=== PATIENT | female | born 1930 | race Caucasian/White ===

== ENCOUNTER 2017-12-29 14:39 | Emergency (ER) | END 2017-12-29 20:20 | disposition home or self-care (01) ==

== ENCOUNTER 2018-01-20 14:36 | Emergency (ER) | payer OTHER ==
[~2018-01-20] VITALS: Ht 152.4 cm; Wt 64.0 kg
[~2018-01-20 14:36] MED LIST: ACEB200; ACTONEL; ALPR.25 PO; AMLO5; AMLO5 PO; ASPI81EC; ASPI81EC PO; ATOR40TA; ATOR40TA PO; BIOTIN1 MG PO; CALCAVITD PO; CALCAVITDA; CALCAVITDA PO; CARI350 PO; CELE200; CELE200 PO; CENTRUM SILVER1 EAC2 PO; CEREFOLIN; CHOL10002 PO; CITA20; CITA20 PO; CLOP75 PO; CYCL10 PO; DILT30; DILT60; DONE10 PO; ESCI10 PO; EXELON1 EACH TD; FURO40; FURO40 PO; GABA300; HYDACE5; HYDACE5 PO; ISOD40ER; ISOMON60ER; KETO10 PO; LEVCAR2510 PO; LISI10 PO; LISI20 PO; LISI5 PO; METO25ER PO; METO50ER PO; MIRAPEX; MULVITA; POTCHL10ER PO; POTCHL20ER; POTCHL20ER PO; RXCYCL10 PO; RYTARY ER 23.71 EACH PO; VIT1CAPS12; WARF1 PO; WARF7.5 PO; [UNRECOGNIZED DRUG - OTHER] PO; [UNRECOGNIZED DRUG - OTHER] PO; [UNRECOGNIZED DRUG - REMARK]
== END 2018-01-20 14:48 | disposition left against medical advice (07) ==
LOC: ER 14:36
DX: Z53.21 Procedure and treatment not carried out due to patient leaving prior to being seen by health care provider (principal)

== ENCOUNTER 2019-01-25 11:44 | Emergency (ER) | payer OTHER ==
[~2019-01-25] VITALS: Ht 152.4 cm; Wt 68.0 kg
[~2019-01-25 11:44] MED LIST changes: -VIT1CAPS12; +VIT1CAPS12 PO
[2019-01-25 12:20] LABS: BASOPHILS ABSOLUTE AUTO 0.04 K/mm3 (0.00-0.23); BASOPHILS PERCENT AUTO 1 % (0-2); EOSINOPHILS ABSOLUTE AUTO 0.25 K/mm3 (0.00-0.68); EOSINOPHILS PERCENT AUTO 4 % (0-6); Hematocrit 43.2 % (33.0-51.0); Hemoglobin 14.2 g/dL (11.5-16.0); IMMATURE GRAN ABSOLUTE AUTO 0.01 K/mm3 (0.00-0.10); IMMATURE GRAN PERCENT AUTO 0 % (0-1); LYMPHOCYTES ABSOLUTE AUTO 1.15 K/mm3 (0.84-5.20); LYMPHOCYTES PERCENT AUTO 20 % (21-46); MONOCYTES ABSOLUTE AUTO 0.46 K/mm3 (0.16-1.47); MONOCYTES PERCENT AUTO 8 % (4-13); Mean Corpuscular HGB Conc 32.9 g/dL (31.5-36.5); Mean Corpuscular Volume 97 fL (80-100); Mean Platelet Volume 11.2 fL (9.1-12.4); NEUTROPHILS ABSOLUTE AUTO 3.93 K/mm3 (1.96-9.15); NEUTROPHILS PERCENT AUTO 67 % (41-73); Platelet Count 180 K/mm3 (150-400); RDW Coefficient Variation 12.7 % (11.7-14.2); RDW Standard Deviation 45.7 fL (35.1-46.3); Red Blood Cell Count 4.44 M/mm3 (3.80-5.20); White Blood Cell Count 5.84 K/mm3 (4.00-11.30)
[2019-01-25 12:38] LABS: Alanine Aminotransfer (ALT/SGP 10 U/L (12-78); Albumin, Blood 3.8 g/dL (3.4-5.0); Albumin/Globulin Ratio 1.2 (0.8-1.8); Alk Phos 82 U/L (50-136); Anion Gap 4 mmol/L (6-16); Aspartate Aminotrans (AST/SGOT 22 U/L (12-37); Bilirubin, Total 0.7 mg/dL (0.1-1.0); Blood Urea Nitrogen 22 mg/dL (8-24); Bun/Creatinine Ratio 26.4 (12.0-20.0); CO2, Blood 29 mmol/L (21-32); Calcium, Blood 9.2 mg/dL (8.5-10.1); Chloride, Blood 111 mmol/L (98-108); Creatinine, Blood 0.83 mg/dL (0.40-1.00); Globulin, Blood 3.3 g/dL (2.2-4.0); Glomerular Filtration Rate >60 (60-); Glucose, Blood 130 mg/dL (70-99); Potassium, Blood 4.5 mmol/L (3.5-5.5); Sodium, Blood 144 mmol/L (136-145); Total Protein, Blood 7.1 g/dL (6.4-8.2)
== END 2019-01-25 13:58 | disposition home or self-care (01) ==
LOC: ER 11:44
PROVIDERS: Emergency Medicine
DX: R06.02 Shortness of breath (principal); Z88.8 Allergy status to other drugs, medicaments and biological substances; Z88.0 Allergy status to penicillin; Z88.2 Allergy status to sulfonamides; Z88.1 Allergy status to other antibiotic agents; Z79.899 Other long term (current) drug therapy; I10 Essential (primary) hypertension
CPT/HCPCS: 71046; 80053; 83880; 84484; 85025; 93005; 93010; 99284-25

== ENCOUNTER 2019-08-20 14:09 | Inpatient (IN) | payer OTHER ==
[~2019-08-20] VITALS: Ht 162.6 cm; Wt 65.7 kg
[~2019-08-20 14:09] MED LIST changes: -CELE200 PO; +Celebrex200 MG PO
[2019-08-20] MEDS ORDERED: RYTARY ER 48.71 EACH PO (14:49)
[2019-08-20] MEDS ORDERED: GALA4 PO (14:53)
[2019-08-20 15:01] LABS: BASOPHILS ABSOLUTE AUTO 0.04 K/mm3 (0.00-0.23); BASOPHILS PERCENT AUTO 0 % (0-2); EOSINOPHILS ABSOLUTE AUTO 0.12 K/mm3 (0.00-0.68); EOSINOPHILS PERCENT AUTO 1 % (0-6); Hematocrit 43.2 % (33.0-51.0); IMMATURE GRAN ABSOLUTE AUTO 0.05 K/mm3 (0.00-0.10); IMMATURE GRAN PERCENT AUTO 0 % (0-1); LYMPHOCYTES ABSOLUTE AUTO 0.91 K/mm3 (0.84-5.20); LYMPHOCYTES PERCENT AUTO 7 % (21-46); MONOCYTES PERCENT AUTO 6 % (4-13); Mean Corpuscular HGB 31.5 pg (26.0-34.0); Mean Corpuscular HGB Conc 32.4 g/dL (31.5-36.5); Mean Corpuscular Volume 97 fL (80-100); Mean Platelet Volume 11.5 fL (9.1-12.4); NEUTROPHILS ABSOLUTE AUTO 10.58 K/mm3 (1.96-9.15); NEUTROPHILS PERCENT AUTO 85 % (41-73); Platelet Count 186 K/mm3 (150-400); RDW Coefficient Variation 12.6 % (11.7-14.2); RDW Standard Deviation 45.1 fL (35.1-46.3); Red Blood Cell Count 4.45 M/mm3 (3.80-5.20)
[2019-08-20 15:16] LABS: Alanine Aminotransfer (ALT/SGP 12 U/L (12-78); Albumin, Blood 3.5 g/dL (3.4-5.0); Albumin/Globulin Ratio 1.1 (0.8-1.8); Alk Phos 94 U/L (50-136); Anion Gap 6 mmol/L (6-16); Aspartate Aminotrans (AST/SGOT 30 U/L (12-37); Bilirubin, Total 1.1 mg/dL (0.1-1.0); Blood Urea Nitrogen 18 mg/dL (8-24); Bun/Creatinine Ratio 24.8 (12.0-20.0); CO2, Blood 21 mmol/L (21-32); Calcium, Blood 9.4 mg/dL (8.5-10.1); Chloride, Blood 116 mmol/L (98-108); Creatinine, Blood 0.73 mg/dL (0.40-1.00); Globulin, Blood 3.3 g/dL (2.2-4.0); Glomerular Filtration Rate >60 (60-); Glucose, Blood 114 mg/dL (70-99); Potassium, Blood 5.3 mmol/L (3.5-5.5); Sodium, Blood 143 mmol/L (136-145); Total Protein, Blood 6.8 g/dL (6.4-8.2)
[2019-08-20] MEDS ORDERED: Razadyne12 MG PO (16:58)
[2019-08-20] MEDS ORDERED: FURO40 PO (17:01)
[2019-08-20 17:07] LABS: Influenza A Negative (NEGATIVE); Influenza B Negative (NEGATIVE)
[2019-08-20 21:33] LABS: Source, Urine Clean Catch
[2019-08-20 21:35] LABS: Bilirubin, Urine Neg (Neg); Blood, Urine 1+ (Neg); Glucose Qualitative, Urine Neg (Neg); Ketones, Urine 1+ (Neg); Leukocyte Esterase, Urine Neg (Neg); Nitrite, Urine Neg (Neg); Protein, Urine Neg (Neg); Specific Gravity, Urine 1.015 (1.003-1.022); Urobilinogen, Urine NORM (Normal)
[2019-08-20 21:43] LABS: Appearance, Urine Clear (Clear); Color, Urine Yellow (P-Yellow)
[2019-08-20 21:44] LABS: Bacteria Rare /hpf; Squamous Epithelial Cells Rare /hpf (Few); White Blood Cells, Urine 0-2 /hpf (0-5)
[2019-08-20 22:53] LABS: Adenovirus Not Detected (NOT DETECT); Bordetella pertussis Not Detected (NOT DETECT); Chlamydophila pneumoniae Not Detected (NOT DETECT); Coronavirus 229E Not Detected (NOT DETECT); Coronavirus HKU1 Not Detected (NOT DETECT); Coronavirus NL63 Not Detected (NOT DETECT); Coronavirus OC43 Not Detected (NOT DETECT); Human Metapneumovirus Not Detected (NOT DETECT); Human Rhinovirus/Enterovirus Not Detected (NOT DETECT); Influenza A Not Detected (NOT DETECT); Influenza A/2009-H1 Not Detected (NOT DETECT); Influenza A/H1 Not Detected (NOT DETECT); Influenza A/H3 Not Detected (NOT DETECT); Influenza B Not Detected (NOT DETECT); Mycoplasma pneumoniae Not Detected (NOT DETECT); Parainfluenza Virus 1 Not Detected (NOT DETECT); Parainfluenza Virus 2 Not Detected (NOT DETECT); Parainfluenza Virus 3 Not Detected (NOT DETECT); Parainfluenza Virus 4 Not Detected (NOT DETECT); Respiratory Syncytial Virus Not Detected (NOT DETECT)
--- NOTE | 2019-08-21 01:07 | NUR ---
BEGINNING SHIFT SUMMARY ASSUMED CARE OF PT AT 1913. PT IS VERY CONFUSED, SHE IS ORIENTED TO SELF AND EVENT. DAUGTHER IS CAREGIVER AND HISTORIAN. HEART SOUNDS IRREGULAR, FINE CRACKLES AT THE BASES OF LUNGS, PT IS ON 1.5L O2, PT ON RA AT BASELINE, PT DENIES SOB AT THIS TIME, DAUGHTER STATES THAT PT HAS SLEEP APNEA AND SHE WEARS A CPAP AT NIGHT. PT HAS BEEN CONTINENT AND INCONTINET OF BLADDER. PT IS A ONE PERSON ASSIST WITH GAITBELT AND WALKER. PT PULLED OUT IV BY ACCIENT DUE TO ROLLING AROUND IN BED. PT IS CURRENTLY BACK TO SLEEP. CALL LIGHT IN REACH, BED IN LOWEST POSTION, BED ALARM ON, WILL CONTINUE TO MONITOR.
--- NOTE | 2019-08-21 04:16 | NUR ---
END SHIFT SUMMARY NO ACUTE CHANGES. PT IS STILL CONFUSED AND SONTINUES TO SHIFT IN BED FREQUENTLY. IV STILL INTACT AND INFUSING LR @ 50ML/HR. PT HAS REFUSED THE CPAP ALL NIGHT. CALL LIGHT IN REACH, BED IN LOWEST POSTION, BED ALARM ON, WILL CONTINUE TO MONITOR UNTIL DAYSHIFT NURSE ARRIVES.
[2019-08-21 05:38] LABS: BASOPHILS ABSOLUTE AUTO 0.03 K/mm3 (0.00-0.23); BASOPHILS PERCENT AUTO 0 % (0-2); EOSINOPHILS ABSOLUTE AUTO 0.12 K/mm3 (0.00-0.68); EOSINOPHILS PERCENT AUTO 1 % (0-6); Hemoglobin 12.3 g/dL (11.5-16.0); IMMATURE GRAN ABSOLUTE AUTO 0.03 K/mm3 (0.00-0.10); IMMATURE GRAN PERCENT AUTO 0 % (0-1); LYMPHOCYTES ABSOLUTE AUTO 0.88 K/mm3 (0.84-5.20); LYMPHOCYTES PERCENT AUTO 10 % (21-46); MONOCYTES ABSOLUTE AUTO 0.62 K/mm3 (0.16-1.47); MONOCYTES PERCENT AUTO 7 % (4-13); Mean Corpuscular HGB 31.3 pg (26.0-34.0); Mean Corpuscular HGB Conc 32.4 g/dL (31.5-36.5); Mean Corpuscular Volume 97 fL (80-100); Mean Platelet Volume 11.3 fL (9.1-12.4); NEUTROPHILS ABSOLUTE AUTO 7.29 K/mm3 (1.96-9.15); NEUTROPHILS PERCENT AUTO 81 % (41-73); Platelet Count 145 K/mm3 (150-400); RDW Coefficient Variation 12.7 % (11.7-14.2); RDW Standard Deviation 45.7 fL (35.1-46.3); Red Blood Cell Count 3.93 M/mm3 (3.80-5.20); White Blood Cell Count 8.97 K/mm3 (4.00-11.30)
[2019-08-21 06:03] LABS: Anion Gap 9 mmol/L (6-16); Blood Urea Nitrogen 16 mg/dL (8-24); Bun/Creatinine Ratio 20.9 (12.0-20.0); CO2, Blood 21 mmol/L (21-32); Calcium, Blood 8.6 mg/dL (8.5-10.1); Chloride, Blood 114 mmol/L (98-108); Creatinine, Blood 0.77 mg/dL (0.40-1.00); Glomerular Filtration Rate >60 (60-); Glucose, Blood 126 mg/dL (70-99); Magnesium, Blood 2.1 mg/dL (1.6-2.4); Potassium, Blood 4.1 mmol/L (3.5-5.5); Sodium, Blood 144 mmol/L (136-145)
[2019-08-21] MEDS ORDERED: Razadyne12 MG PO (10:45)
[2019-08-21] MEDS ORDERED: Elemental Calc600 MG PO (11:08)
[2019-08-21 12:36] LABS: BASOPHILS ABSOLUTE AUTO 0.04 K/mm3 (0.00-0.23); BASOPHILS PERCENT AUTO 1 % (0-2); EOSINOPHILS ABSOLUTE AUTO 0.11 K/mm3 (0.00-0.68); EOSINOPHILS PERCENT AUTO 1 % (0-6); Hematocrit 40.6 % (33.0-51.0); Hemoglobin 13.3 g/dL (11.5-16.0); IMMATURE GRAN ABSOLUTE AUTO 0.01 K/mm3 (0.00-0.10); IMMATURE GRAN PERCENT AUTO 0 % (0-1); LYMPHOCYTES ABSOLUTE AUTO 0.95 K/mm3 (0.84-5.20); LYMPHOCYTES PERCENT AUTO 11 % (21-46); MONOCYTES ABSOLUTE AUTO 0.59 K/mm3 (0.16-1.47); MONOCYTES PERCENT AUTO 7 % (4-13); Mean Corpuscular HGB 31.4 pg (26.0-34.0); Mean Corpuscular HGB Conc 32.8 g/dL (31.5-36.5); Mean Corpuscular Volume 96 fL (80-100); Mean Platelet Volume 11.3 fL (9.1-12.4); NEUTROPHILS ABSOLUTE AUTO 6.91 K/mm3 (1.96-9.15); NEUTROPHILS PERCENT AUTO 80 % (41-73); Platelet Count 155 K/mm3 (150-400); RDW Coefficient Variation 12.9 % (11.7-14.2); RDW Standard Deviation 45.9 fL (35.1-46.3); Red Blood Cell Count 4.24 M/mm3 (3.80-5.20); White Blood Cell Count 8.61 K/mm3 (4.00-11.30)
[2019-08-21 12:47] LABS: Anion Gap 7 mmol/L (6-16); Blood Urea Nitrogen 17 mg/dL (8-24); Bun/Creatinine Ratio 20.8 (12.0-20.0); CO2, Blood 22 mmol/L (21-32); Calcium, Blood 8.7 mg/dL (8.5-10.1); Chloride, Blood 115 mmol/L (98-108); Creatinine, Blood 0.82 mg/dL (0.40-1.00); Glomerular Filtration Rate >60 (60-); Glucose, Blood 117 mg/dL (70-99); Potassium, Blood 4.1 mmol/L (3.5-5.5); Sodium, Blood 144 mmol/L (136-145)
--- NOTE | 2019-08-21 16:18 | NUR ---
SUMMARY PT HAS HX PARKINSONS & DEMENTIA, ORIENTED TO SELF & FAMILY, PLEASANT HOWEVER CONFUSED. UE TREMORS. SHE IS ABLE TO STAND/PIVOT TO CHAIR/BSC W 1-2 ASSIST. SHE WAS UP FOR BF TODAY. WHILE HER DAUGHTER WAS VISITING AFTER BF SHE BECAME SHORT OF BREATH, BIOX MID 90'S ON RA HOWEVERPLACED ON 2L FOR COMFORT. ISTRATE NOTIFIED, IN TO SEE PT & DAUGHTER, REVIEW CXR. STATE VOL OVERLOAD R/T CHF, BNP @ 1352, ORDER EXTRA IV LASIX 10MG IN ADDITION TO SCHEDULED 40MG TID. ORDER ATIVAN 0.5MG FOR ANXIETY. SHE HAS PUT OUT LARGE AMTS URINE HOWEVER UNMEASURED D/T INCONTINENCE. BREATHING HAS IMPROVED, O2 CONTINUES @ 2L, BIOX 94% SHE BEEN CALM, SLEEPING MOST OF AFTERNOON. ORDER D-DIMER TO R/O PE, WNL. WBC 12.4, IV ANTIBX CONTINUE. VSS.
--- NOTE | 2019-08-21 17:06 | NUR ---
ECHOCARDIOGRAM COMPLETED
--- NOTE | 2019-08-21 21:24 | NUR ---
BEGINNING SHIFT SUMMARY ASSUMED CARE OF PT AT 1900. PT WAS LYING IN BED. PT IS ALERT AND ORIENTED TO SELF, PT WILL GET OUT OF BED BY HERSELF, BED ALARM ON. HEART SOUNDS IRREGULAR. L LUNG SOUNDS HAD FINE CRACKLES AT THE BASES, PT IS REFUSING THE CPAP, PT IS CURRENTLY ON RA WITH BIOX ON FINGER, PT HAD SOME SOB WHEN SWOLLOWING MEDICATIONS BUT HAD NOT HAD ANY SINCE. PT IS CURRENTLY SLEEPING, CALL LIGHT IN REACH, BED IN LOWEST POSTION, WILL CONTINUE TO MONITOR.
--- NOTE | 2019-08-22 04:41 | NUR ---
END SHIFT SUMMARY NO ACUTE CHANGES NOTED T/O THE NIGHT. PT REFUSED THE CPAP, SATURATIONS STAYED ABOVE 90%, PT WAS CONTINENT DURING THE NIGHT AND DID NOT ATTEMPT TO GET OUT OF BED. CALL LIGHT IN REACH, BED IN LOWEST POSTION, WILL CONTINUE TO MONITOR UNTIL DAYSHIFT NURSE ARRIVES.
[2019-08-22 05:33] LABS: BASOPHILS ABSOLUTE AUTO 0.03 K/mm3 (0.00-0.23); BASOPHILS PERCENT AUTO 1 % (0-2); EOSINOPHILS ABSOLUTE AUTO 0.21 K/mm3 (0.00-0.68); EOSINOPHILS PERCENT AUTO 4 % (0-6); Hematocrit 37.8 % (33.0-51.0); Hemoglobin 12.5 g/dL (11.5-16.0); IMMATURE GRAN ABSOLUTE AUTO 0.02 K/mm3 (0.00-0.10); IMMATURE GRAN PERCENT AUTO 0 % (0-1); LYMPHOCYTES ABSOLUTE AUTO 1.17 K/mm3 (0.84-5.20); LYMPHOCYTES PERCENT AUTO 20 % (21-46); MONOCYTES PERCENT AUTO 8 % (4-13); Mean Corpuscular HGB 31.5 pg (26.0-34.0); Mean Corpuscular HGB Conc 33.1 g/dL (31.5-36.5); Mean Corpuscular Volume 95 fL (80-100); Mean Platelet Volume 11.5 fL (9.1-12.4); NEUTROPHILS PERCENT AUTO 68 % (41-73); Platelet Count 147 K/mm3 (150-400); RDW Coefficient Variation 12.9 % (11.7-14.2); RDW Standard Deviation 45.2 fL (35.1-46.3); Red Blood Cell Count 3.97 M/mm3 (3.80-5.20); White Blood Cell Count 5.93 K/mm3 (4.00-11.30)
[2019-08-22 05:56] LABS: Anion Gap 6 mmol/L (6-16); Blood Urea Nitrogen 19 mg/dL (8-24); Bun/Creatinine Ratio 20.8 (12.0-20.0); CO2, Blood 26 mmol/L (21-32); Calcium, Blood 8.6 mg/dL (8.5-10.1); Chloride, Blood 114 mmol/L (98-108); Creatinine, Blood 0.91 mg/dL (0.40-1.00); Glomerular Filtration Rate >60 (60-); Glucose, Blood 101 mg/dL (70-99); Potassium, Blood 3.8 mmol/L (3.5-5.5); Sodium, Blood 146 mmol/L (136-145)
[2019-08-22] MEDS ORDERED: Ventolin/Prove6.7 GM INH (14:34)
[2019-08-22] MEDS ORDERED: BISA10S PR (14:35)
[2019-08-22] MEDS ORDERED: AZIT500 PO (14:35)
[2019-08-22] MEDS ORDERED: FAMO20 PO (14:36)
[2019-08-22] MEDS ORDERED: CEFP200 PO (14:36)
[2019-08-22] MEDS ORDERED: Florastor250 MG PO (14:37)
[2019-08-22] MEDS ORDERED: ONDA4 PO (14:37)
[2019-08-22] MEDS ORDERED: SPIR25 PO (14:38)
--- NOTE | 2019-08-22 15:24 | NUR ---
PT DISCHARGED PT DISCHARGED AT 1517. PT IN STABLE CONDITION. PT & DAUGHTER EDUCATED ON DC INSTRUCTIONS AND FOLLOW UP APPOINTMENTS. NEW MEDS SENT TO [facility]. IV REMOVED & INTACT. PT WHEELED OUT BY THIS RN. DRIVEN HOME BY DAUGHTER.
[2019-09-07] MEDS ORDERED: CELECOXIB200 M1 PO (12:52)
[2019-09-07] MEDS ORDERED: FUROSEMIDE40 MG PO (12:53)
== END 2019-08-22 15:15 | disposition home health service (06) | DRG 871 ==
LOC: ER 14:09 → MEDS 16:41
PROVIDERS: Emergency Medicine; Physician Assistant; ADMIT Family Medicine
DX: A41.9 Sepsis, unspecified organism (principal); J18.9 Pneumonia, unspecified organism; G20 Parkinson's disease; F02.80 Dementia in other diseases classified elsewhere, unspecified severity, without behavioral disturbance, psychotic disturbance, mood disturbance, and anxiety; Z95.2 Presence of prosthetic heart valve; H35.3190 Nonexudative age-related macular degeneration, unspecified eye, stage unspecified; Z95.1 Presence of aortocoronary bypass graft; I35.0 Nonrheumatic aortic (valve) stenosis; E78.5 Hyperlipidemia, unspecified; I50.9 Heart failure, unspecified; I11.0 Hypertensive heart disease with heart failure
CPT/HCPCS: 0099U; 36415; 71045; 71046; 80048; 80053; 81001; 83605; 83735; 83880; 84145; 85025; 85379; 87040; 87804; 93005; 93010; 93306; 94762; 96365; 96366; 96367; 99285-25; J0456; J0696; J1650; J1940; J2060; J7030; J7050; J7120

== ENCOUNTER 2019-10-02 19:04 | Inpatient (IN) | payer OTHER ==
[~2019-10-02] VITALS: Ht 144.8 cm; Wt 61.2 kg
[~2019-10-02 19:04] MED LIST changes: +AZIT500 PO; +Aspir 8181 MG PO; +BISA10S PR; +CEFP200 PO; +CELECOXIB200 M1 PO; -CHOL10002 PO; +Elemental Calc600 MG PO; +FAMO20 PO; +FUROSEMIDE40 MG PO; +Florastor250 MG PO; +GALA4 PO; +ONDA4 PO; +RYTARY ER 48.71 EACH PO; +Razadyne12 MG PO; +SPIR25 PO; +VITAMIN D31000 UNI1 PO; +Ventolin/Prove6.7 GM INH; +[UNRECOGNIZED DRUG - OTHER] PO
[2019-10-02] MEDS ORDERED: Klor-Con 1010 MEQ PO (19:14)
[2019-10-02] MEDS ORDERED: FURO40 PO (19:14)
[2019-10-02 19:43] LABS: BASOPHILS ABSOLUTE AUTO 0.05 K/mm3 (0.00-0.23); BASOPHILS PERCENT AUTO 1 % (0-2); EOSINOPHILS ABSOLUTE AUTO 0.13 K/mm3 (0.00-0.68); EOSINOPHILS PERCENT AUTO 2 % (0-6); Hematocrit 41.1 % (33.0-51.0); Hemoglobin 13.5 g/dL (11.5-16.0); IMMATURE GRAN ABSOLUTE AUTO 0.01 K/mm3 (0.00-0.10); IMMATURE GRAN PERCENT AUTO 0 % (0-1); LYMPHOCYTES PERCENT AUTO 15 % (21-46); MONOCYTES ABSOLUTE AUTO 0.45 K/mm3 (0.16-1.47); MONOCYTES PERCENT AUTO 7 % (4-13); Mean Corpuscular HGB 31.3 pg (26.0-34.0); Mean Corpuscular HGB Conc 32.8 g/dL (31.5-36.5); Mean Corpuscular Volume 95 fL (80-100); Mean Platelet Volume 10.9 fL (9.1-12.4); NEUTROPHILS ABSOLUTE AUTO 4.99 K/mm3 (1.96-9.15); NEUTROPHILS PERCENT AUTO 75 % (41-73); Platelet Count 250 K/mm3 (150-400); RDW Coefficient Variation 13.4 % (11.7-14.2); RDW Standard Deviation 47.3 fL (35.1-46.3); Red Blood Cell Count 4.31 M/mm3 (3.80-5.20); White Blood Cell Count 6.63 K/mm3 (4.00-11.30)
[2019-10-02 20:04] LABS: Alanine Aminotransfer (ALT/SGP 12 U/L (12-78); Albumin, Blood 3.4 g/dL (3.4-5.0); Alk Phos 82 U/L (50-136); Anion Gap 6 mmol/L (6-16); Aspartate Aminotrans (AST/SGOT 22 U/L (12-37); Bilirubin, Total 0.8 mg/dL (0.1-1.0); Blood Urea Nitrogen 20 mg/dL (8-24); Bun/Creatinine Ratio 28.5 (12.0-20.0); CO2, Blood 25 mmol/L (21-32); Calcium, Blood 9.8 mg/dL (8.5-10.1); Chloride, Blood 112 mmol/L (98-108); Globulin, Blood 3.3 g/dL (2.2-4.0); Glomerular Filtration Rate >60 (60-); Glucose, Blood 154 mg/dL (70-99); Sodium, Blood 143 mmol/L (136-145); Total Protein, Blood 6.7 g/dL (6.4-8.2)
[2019-10-02 20:05] LABS: Source, Urine Catheter
[2019-10-02 20:16] LABS: Appearance, Urine Clear (Clear); Bilirubin, Urine Neg (Neg); Blood, Urine Neg (Neg); Color, Urine Yellow (P-Yellow); Glucose Qualitative, Urine Neg (Neg); Ketones, Urine 1+ (Neg); Leukocyte Esterase, Urine 2+ (Neg); Nitrite, Urine Neg (Neg); Protein, Urine Neg (Neg); Urobilinogen, Urine NORM (Normal)
[2019-10-02 20:31] LABS: Bacteria Mod /hpf; Red Blood Cells, Urine 0-2 /hpf (0-2); Squamous Epithelial Cells Few /hpf (Few)
[2019-10-02] MEDS ORDERED: LISI20 PO (21:08)
[2019-10-02] MEDS ORDERED: FURO20 PO (21:08)
[2019-10-02] MEDS ORDERED: CELEBREX200 MG PO (21:09)
[2019-10-02] MEDS ORDERED: Aspirin EC81 MG PO (21:14)
--- NOTE | 2019-10-03 00:31 | NUR ---
Pt arrival to PCU Arrived at 2305 via gurney with ED RN at bedside. Pt slide transfer to PCU bed. VSS. Alert, oriented to self, place, time; not oriented to situation. Pt not answering questions appropriately, often laughs throughout conversation. Pt unable to recall history. Pt follows simple directions and commands, difficulty noted in complex directions. See admission assessment for detailed systems assessment. Pt able to transfer to BSC with SBA without difficulty. FWW utilized in transfer. pt voided 650 mls urine. Attends placed on pt in case of incont void throughout night. Pt able to swallow pills whole, one at a time, in apple sauce. Will continue to monitor.
[2019-10-03 03:04] LABS: BASOPHILS ABSOLUTE AUTO 0.03 K/mm3 (0.00-0.23); BASOPHILS PERCENT AUTO 1 % (0-2); EOSINOPHILS ABSOLUTE AUTO 0.16 K/mm3 (0.00-0.68); EOSINOPHILS PERCENT AUTO 3 % (0-6); Hematocrit 39.4 % (33.0-51.0); Hemoglobin 12.8 g/dL (11.5-16.0); IMMATURE GRAN ABSOLUTE AUTO 0.01 K/mm3 (0.00-0.10); IMMATURE GRAN PERCENT AUTO 0 % (0-1); LYMPHOCYTES ABSOLUTE AUTO 0.95 K/mm3 (0.84-5.20); LYMPHOCYTES PERCENT AUTO 17 % (21-46); MONOCYTES ABSOLUTE AUTO 0.47 K/mm3 (0.16-1.47); MONOCYTES PERCENT AUTO 9 % (4-13); Mean Corpuscular HGB 31.2 pg (26.0-34.0); Mean Corpuscular HGB Conc 32.5 g/dL (31.5-36.5); Mean Corpuscular Volume 96 fL (80-100); Mean Platelet Volume 10.6 fL (9.1-12.4); NEUTROPHILS ABSOLUTE AUTO 3.86 K/mm3 (1.96-9.15); NEUTROPHILS PERCENT AUTO 71 % (41-73); Platelet Count 219 K/mm3 (150-400); RDW Coefficient Variation 13.5 % (11.7-14.2); RDW Standard Deviation 48.2 fL (35.1-46.3); White Blood Cell Count 5.48 K/mm3 (4.00-11.30)
[2019-10-03 03:21] LABS: Anion Gap 6 mmol/L (6-16); Blood Urea Nitrogen 19 mg/dL (8-24); Bun/Creatinine Ratio 22.9 (12.0-20.0); CO2, Blood 27 mmol/L (21-32); Chloride, Blood 114 mmol/L (98-108); Creatinine, Blood 0.83 mg/dL (0.40-1.00); Glomerular Filtration Rate >60 (60-); Glucose, Blood 127 mg/dL (70-99); Potassium, Blood 3.6 mmol/L (3.5-5.5); Sodium, Blood 147 mmol/L (136-145)
--- NOTE | 2019-10-03 05:16 | NUR ---
Shift Summary Pt admitted to PCU this shift, remains alert and oriented to person and date of . Pt forgetting frequently where she is and why she is in the hospital. VSS. Voiding at the [facility] with 1-2 person assist. approx 900 mls voided this shift. Tele shows sinus BBB and PVCs, one 13 beat run of VTACH. Pt asx, sleeping. No acute changes from initial admission assessment. Will continue to monitor.
--- NOTE | 2019-10-03 07:28 | NUR ---
ASSUMED PATIENT CARE. PATIENT SLEEPING COMFORTABLY IN BED, NO SIGNS OF ACUTE DISTRESS. WCTM.
--- NOTE | 2019-10-03 13:04 | NUR ---
CALLED PATIENT'S DAUGHTER AND ASKED HER TO BRING IN HOME MEDS, INCLUDING CARBIDOPA/LEVODOPA. DAUGHTER WILL PLAN TO BRING THOSE TONIGHT AFTER WORK.
--- NOTE | 2019-10-03 15:38 | NUR ---
[facility] CARE VISIT: Introduced myself to Katlyn lucero and to pt. Katlyn remembers meeting with Palliative Care on her mom's last admission in September and remarks that her mom has visited the hospital monthly recently. Pt and family well known to me from the community. Krissy does not recognize me or remember attending cardiac rehab after her cardiac stenting and bypass. She brightens when she hears me mention her other daughter's and sons' names recognizing the names. Pt appears slighly anxious and restless. She is able to get to a sitting position at the side of the bed without assist. She required help getting her blankets and gown straightened to remove wrinkles that were bothering her and then she was able to lie back down. Her daughter seems very anxious with pt's movements and bed mobility. At no time did Krissy attempt to get OOB while I was standing there. 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 Katlyn states that her brother, Shiv, is pt's medical and legal POA. She states he is in [place] and she cannot remember or does not have his phone # with her. She states family planned to discuss code status with pt's PCP, Dr Castelan but hadn't yet. Katlyn feels they would not want CPR or intubation initiated but states she cannot give any instructions. I gave Katlyn my card and asked that she have her Brother, Shiv, give us a call to get directions for goals of care and code status. Another son, Waqar, and DEE live locally but are also not the medical POA per Katlyn. Krissy lives at home wtih her jazmine, Katlyn. Katlyn is exhibiting and expressing CG distress/fatigue and may benefit from support at home. 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 Pt and her daughter may benefit from s/s management assist and cg support at home on d/c. Will await sonShiv's call to discuss family wishes and goals of care and review advanced care planning options with Shiv, who siblings identify as pt's medical POA.
--- NOTE | 2019-10-03 17:00 | NUR ---
REPORT GIVEN TO JOSE ALEJANDRO CHERRY IN MED.
--- NOTE | 2019-10-03 19:50 | NUR ---
SHIFT SUMMARY: PATIENT XFR FROM PCU-01 THIS SHIFT. PT A&O; HX DEMENTIA/PARKINSONS; CALM AND COOPERATIVE WITH CARE. ADMIT FOR CHF EXAC; LUNGS COARSE; O2 @ 4L; EF 15%. FORGETFUL; BED ALARM ON FOR SAFETY. REPORT GIVEN TO ONCOMING RN.
[2019-10-04 05:23] LABS: Magnesium, Blood 2.3 mg/dL (1.6-2.4)
[2019-10-04 05:25] LABS: Anion Gap 8 mmol/L (6-16); Blood Urea Nitrogen 21 mg/dL (8-24); Bun/Creatinine Ratio 23.6 (12.0-20.0); CO2, Blood 27 mmol/L (21-32); Calcium, Blood 8.8 mg/dL (8.5-10.1); Chloride, Blood 113 mmol/L (98-108); Creatinine, Blood 0.89 mg/dL (0.40-1.00); Glomerular Filtration Rate >60 (60-); Glucose, Blood 123 mg/dL (70-99); Potassium, Blood 3.5 mmol/L (3.5-5.5); Sodium, Blood 148 mmol/L (136-145)
--- NOTE | 2019-10-04 06:09 | NUR ---
SHIFT SUMMARY PATIENT ALERT BUT SLIGHTLY CONFUSED AND FORGETFUL. VERY PLEASANT AND COOPORATIVE. SHE IS ABLE TO STAND AND TURN TO THE BED SIDE COMMODE WITH MINIMAL ASSISTANCE. PATIENT ON 4 LITERS O2 VIA NASAL CANULA. IV PATENT AND FLUSHED. BED IN LOWEST POSITION WITH WHEELS LOCKED AND ALARM ON. CALL LIGHT WITHIN REACH AND PATIENT REMINDED OF HOW TO USE IT. REPORT GIVEN TO ONCOMING RN.
--- NOTE | 2019-10-04 19:59 | NUR ---
SHIFT SUMMARY: PT HX DEMENTIA; A&O X1-2; CALM; COOPERATIVE WITH CARE LATER IN SHIFT. NO C/O PAIN THIS SHIFT. PT UP c 1-ASSIST TO BSC. WEAK, FORGETFUL; BED ALARM ON FOR SAFETY. HOSPICE REFERRAL THIS SHIFT; PT NOW DNR STATUS. REPORT GIVEN TO ONCOMING RN.
[2019-10-05 06:19] LABS: Bun/Creatinine Ratio 25.3 (12.0-20.0); Calcium, Blood 9.4 mg/dL (8.5-10.1); Creatinine, Blood 0.95 mg/dL (0.40-1.00); Potassium, Blood 3.8 mmol/L (3.5-5.5)
[2019-10-05 06:23] LABS: BASOPHILS ABSOLUTE AUTO 0.05 K/mm3 (0.00-0.23); BASOPHILS PERCENT AUTO 1 % (0-2); EOSINOPHILS ABSOLUTE AUTO 0.06 K/mm3 (0.00-0.68); EOSINOPHILS PERCENT AUTO 1 % (0-6); Hematocrit 42.6 % (33.0-51.0); IMMATURE GRAN ABSOLUTE AUTO 0.03 K/mm3 (0.00-0.10); IMMATURE GRAN PERCENT AUTO 0 % (0-1); LYMPHOCYTES ABSOLUTE AUTO 1.13 K/mm3 (0.84-5.20); LYMPHOCYTES PERCENT AUTO 14 % (21-46); MONOCYTES ABSOLUTE AUTO 0.57 K/mm3 (0.16-1.47); MONOCYTES PERCENT AUTO 7 % (4-13); Mean Corpuscular HGB Conc 32.9 g/dL (31.5-36.5); Mean Corpuscular Volume 94 fL (80-100); Mean Platelet Volume 11.2 fL (9.1-12.4); NEUTROPHILS ABSOLUTE AUTO 6.04 K/mm3 (1.96-9.15); NEUTROPHILS PERCENT AUTO 77 % (41-73); Platelet Count 247 K/mm3 (150-400); RDW Coefficient Variation 13.5 % (11.7-14.2); RDW Standard Deviation 46.7 fL (35.1-46.3); Red Blood Cell Count 4.52 M/mm3 (3.80-5.20); White Blood Cell Count 7.88 K/mm3 (4.00-11.30)
--- NOTE | 2019-10-05 07:34 | NUR ---
10/05/19 0700 PT C/O SOB AND VITALS TAKEN. 02 SAT = 96% ON ROOM AIR. REST OF VITALS WERE GOOD. PT VERY CONFUSED LAST NIGHT AND RN HAD TO GET AN ORDER FOR VEST RESTRINT TO PREVENT A FALL. PT WAS NOT COOPERATIVE WITH DIRECTIONS AND WOULD ATTEMPT TO GET OUT OF BED OFTEN. PT VOIDED TWICE THIS SHIFT. DENIES ANY DISCOMFORT.
--- NOTE | 2019-10-05 18:39 | NUR ---
SPOKE TO DR ROBERTO FERRER RN STATES PT TO LEAVE THURSDAY ON HOSPICE. HER REQUEST FOR COMFORT CARE. HE BELIEVES PT SON MAKING FINAL DECISIONS. HE WILL SEE TOMORROW AND TALK TO FAMILY. HE OKAYED NO IV. OKAY HALDON FROM IV TO PO. AND ADD ATIVAN. PO. SPOKE TO DAUGHTER CHI IN ROOM. SHE IN TOUCH WITH REST OF FAMILY. STATES UNDERSTANDS AND THINKS UNDERSTANDS POSS COMFORT CARE. REQUESTED SHE VISIT WITH OTHER FAMILY AND DISCUSS AND DR MEJIA TO SEE TOMORROW.
--- NOTE | 2019-10-05 19:40 | NUR ---
PT PLEASANT, MOSTLY, WITH SOME AGITATION. CONFUSED. NOT REDIRECTABLE. TRYING TO GET OUT OF BED MOST OF DAY. VEST RESTRAINT ON T/O DAY. DAUGHTER IN TODAY. BROUGHT DOG IN TO SEE PT. THIS HELPED. PT PULLED IV. DISCUSSED WITH DR MEJIA. OKAYED NO IV. MOVE HALDOL TO PO AND ORDERS FOR ATIVAN PO. PT DISCHARGING ON HOSPICE THURSDAY. DAUGHTER TO TALK AMONG FAMILY AND DISCUSSING COMFORT CARE. DR MEJIA TO SEE TOMORROW AND DISCUSS FURTHER. BED IN LOW POSITION, CALL LITE IN REACH, BED ALARM ON FOR SAFETY, VEST ALSO FOR SAFETY
--- NOTE | 2019-10-06 05:42 | NUR ---
SUMMARY PT REMAINS CONFUSED AND TRIES TO GET OUT OF BED. PT CONTINUES TO WEAR A HUSSAIN VEST FOR SAFETY. NO OTHER ISSUES NOTED. CALL LIGHT IN REACH AND BED ALARM ON. WCTM.
--- NOTE | 2019-10-06 10:45 | NUR ---
PAL CARE VISIT: CASE CONFERENCED WITH PT'S RN AND DR AFTER VISIT. Pt is lying on her side, resting. RR is 36-40/min at rest. She has been by report more anxious and agitated over the past 24 hours. I did not disturb her as RN had just been in the room and she is resting with eyes closed currently. She did not open them when I came into the room. No family/visitors with her at this time. Plan to contact family re: comfort care to start today if they are agreeable to better manage her s/s of air hunger and anxiety/agitation. Discussed dc planning with rehabilitation liaison and CM this am also.
--- NOTE | 2019-10-06 15:00 | NUR ---
PAL CARE/COMFORT CARE VISIT T/C FROM RN STATING PT'S ANXIETY AND AIR HUNGER WORSENING DAY HAS PROGRESSED. CALL OUT TO [facility]PO[facility] AND UNABLE TO REACH HIM. T/C TO CYNTHIA PHILIP, WHO RETURNED MY CALL. CYNTHIA ASKS THAT WE PROCEED WITH INITIATING COMFORT CARE SO MOM'S S/S MAY BE BETTER TREATED. PLAN REMAINS FOR PT TO BE DISCHARGED HOME WITH HOSPICE AND FAMILY/HIRED CG IN AM WITH REASSESSMENT OF PROGRESSION AND S/S IN AM ALSO. T/C TO REPORT ALL OF ABOVE TO DR AND PT'S RN. VO FOR COMFORT CARE ORDERS OBTAINED AND ENTERED. RN ALSO REPORTS THAT PT IS STARTING TO HALLUCINATE AND BELIEVES SOMEONE IS "COMING TO KILL HER". DURING MY SECOND VISIT FOR SUPPORT & ASSESSMENT, CHI PHILIP & NEIGHBOR/FRIEND ARRIVED. THEY WERE UPDATED ON CURRENT STATUS AND CHANGE IN ORDERS. BOTH VERBALIZE UNDERSTANDING AND AGREEMENT WITH PRIMARY GOAL OF CARE BEING PT'S COMFORT. CECIL RECOGNIZED HER DAUGHTER AND RECOGNIZED FRIEND "NEIGHBOR" AND SEEMED CALMED BY THEIR PRESENCE AND VOICES. CHI WAS VERY TENDER AND SUPPORTIVE WITH HER MOM, WHICH WAS VERY SOOTHING TO CECIL. I ENCOURAGED FAMILY AND FRIENDS TO BE PRESENT MUCH THEY ARE ABLE AND TO REST AND PROVIDE SELF CARE FOR THEMSELVES NEEDED WELL. WE DISCUSSED PLAN OF CARE, MEDICATIONS FOR S/S AND I ANSWERED QUESTIONS THEY HAD. MEDICAL EQUIPMENT IN PROCESS OF BEING DELIVERED PER RICKS/HOSPICE LATE THIS AFTERNOON. CYNTHIA IS STAYING IN CLOSE CONTACT WITH CHI AND PIPER. ANOTHER SON IS ARRIVING TOMORROW FROM [facility] AND HOPES TO BE IN [place] WITH CYNTHIA SAT. THIS WILL BE HELPFUL TO CHI AT HOME. PIPER IS ALSO EXPECTED BACK IN [place] BY THE WEEKEND. CM AND AIR REDUCTION EQUIPMENT OPERATOR UPDATED ON ALL OF ABOVE.
--- NOTE | 2019-10-06 16:09 | NUR ---
CALLED AND SPOKE WITH PALLIATIVE CARE RN JAQUELINE AND NOTIFIED HER THAT PT WAS VERY ANXIOUS ATTEMPTING TO GET OUT OF BED AND INCREASED RESPIRATIONS. PT ALSO NOTED TO HAVE SOME HALLUCINATIONS AND VERY CONCERNED THAT SOMEONE WAS GOING TO COME KILL HER. PRN ATIVAN GIVEN.PT WITH VERY LITTLE ORAL INTAKE THIS SHIFT AND NO URINE OUTPUT. JAQUELINE CALLED AND SPOKE WITH FAMILY AND PT WAS CHANGED TO COMFORT CARE AT THIS TIME. PT CURRENTLY RESTING WITH SON AT BEDSIDE.
--- NOTE | 2019-10-06 16:48 | NUR ---
SHIFT SUMMARY- PT CHANGED TO COMFORT CARE TODAY. PT A/OX1 ONLY. PT ANXIOUS AT TIMES AND ATTEMPTING TO GET OUT OF BED AND PULLING ON RESTRAINTS. PT SOB AND NOTED TO HAVE INCREASED RESPIRATIONS AND AIR HUNGER. PRN ATIVAN GIVEN THIS AFTERNOON THAT DID HELP. LS CLEAR/ DIMINISHED IN THE BASES, ON RA. PT DIFFICULT TO TAKE MEDICATIONS THIS AM BUT DID FINALLY TAKE, HOME MEDS HAVE BEEN STOPPED AT THIS TIME. MO WITH VERY LITTLE ORAL INTAKE, NO URINE OUTPUT THIS SHIFT. FAMILY HAS BEEN IN ROOM AT TIMES T/O THE DAY AND EDUCATED ON COMFORT CARE. HUSSAIN LEES'Jayy AT 1600. ACCORING TO PALLIATIVE CARE NURSE JAQUELINE JUSTICE IS NOW CONCERNED ABOUT TAKING PT HOME TOMORROW ON HOSPICE, PER JAQUELINE THEY WILL REEVALUATE TOMORROW.
--- NOTE | 2019-10-07 00:03 | NUR ---
Patient refused all pill form meds (twice). Offered with applesauce. Did not push as patient quite somnolent. She was able to take a 5mg dose of roxynol around 2345 sublinqually. Patient gets quite tachypnec when turned, or disturbed. If morphine doesn't appear to make patient comfortable, will try making ativan into paste and giving it sublingually.
--- NOTE | 2019-10-07 07:23 | NUR ---
ASSUMED CARE OF PT- BEDSIDE REPORT COMPLETED WITH NIGHT RN VICENTA. PER REPORT PT APPEARS TO BE RALLYING, PT MORE INTERACTIVE THAN PERVIOUS. PT HAS 5 CHILDREN THREE HAVE BEEN IN 2 ARE COMING FROM OUT OF TOWN. PER REPORT THE PT HAS A SON (KAIT) WHO, PER FAMILY, IS IN NO WAY A DECISION MAKER. PT IS COMFORT CARE AND LAST 5MG ROXINOL DOSE WAS GIVEN AT 0638. PT APPEARS COMFORTABLE IN THE BED AT THIS TIME. PER REPORT PT MOVES HERSELF AROUND IN THE BED, IS REFUSING ALL PO MEDICATIONS AND BITES THE SYRINGE WHEN ROXANOL IS BEING GIVEN (HOWEVER SHE OPENS HER MOUTH AGAIN READILY) POSSIBLY A BITE REFLEX. PT SEEMS TO BE DROWSY BUT ALERT TO HER SURROUNDINGS THIS MORNING. ALSO PRIOR TO SHIFT CHANGE SHE VERBALY TOLD STAFF SHE WAS COLD, SHE NODDED THAT SHE WAS NO LONGER COLD AT SHIFT CHANGE, DURING BEDSIDE REPORT.
--- NOTE | 2019-10-07 08:15 | NUR ---
CALLED PALLIATIVE CARE RN TO COME SPEAK TO THE FAMILY. PT IS HAVING NOTABLE PAUSES IN RESPIRATIONS FOLLOWED BY RAPID BREATHING. PT APPEARS COMFORTABLE AT THIS TIME, DAUGHTER AT THE BEDSIDE, EACH TIME THE PT HAS A PAUSE IN RESPIRATIONS SHE SHAKES THE PT AWAKE. PT REACHED OUT WITH HER LEFT HAND GRABBED HER DAUGHTERS HAND AND SAID "LEAVE ME ALONE." CALLED PALLIATIVE CARE RN FOR SOME ADDITIONAL EDUCATION FOR THE FAMILY ON WHAT TO EXPECT THE PT PROGRESSES. PLAN IS FOR THE PT TO DISCHARGE HOME ON HOSPICE TODAY AT 1000 VIA GURNEY TRANSPORT.
--- NOTE | 2019-10-07 08:45 | NUR ---
Requested by nursing to come speak with pt's daughter who is at the bedside. Nursing reports pt is having occasional periods of apnea and would like PC to come visit with her dtr. EOL education given. Explained the normal signs that come with EOL. Provided [employer] comfort care booklet to dtr and answered questions. Plan is for pt to go home with Hospice at 1000 this morning with a same day admit to [facility]. OLIVERIO Alonzo, stopped in while this insurance underwriter was visiting with dtr to confirm plans for discharge today. Pt has periods of alertness and periods of sleepiness. No mottling noted. Skin is warm, but cool to touch. Krissy did open her eyes and say "good morning" to this insurance underwriter. Spoke with nursing who will plan to medicate pt prior to discharge. Pt's dtr states all equipment is in place at home and Krissy's caregiver will be there at home when she arrives. Krissy appears to be comfortable at this time.
[2019-10-07] MEDS ORDERED: LORA1 (09:46)
[2019-10-07] MEDS ORDERED: MORP20L SL (09:49)
[2019-10-07] MEDS ORDERED: Phenergan25 MG PR (09:51)
[2019-10-07] MEDS ORDERED: Transderm-Scop1 EACH (09:57)
--- NOTE | 2019-10-07 10:00 | NUR ---
DISCHARGE NOTE- PT WAS ASSISTED INTO HER CLOTHES BY 2 STAFF MEMBERS. AFTER ALL OF THIS ACTIVITY PT WAS BREATHING RAPIDLY AND APPEARED ANXIOUS SAYING "HURRY, HURRY, QUICK" PT WAS UNABLE TO ANSWER ANY QUESTIONS WHEN STAFF TRIED TO DETERMINE WHAT WAS WRONG. PLANNED TO GIVE ROXANOL WITH ATIVAN FOR ANXIETY WITH AIR HUNGER. RETURNED WITH 10MG ROXINOL AND 1MG ATIVAN, LOOKING AT THE PT EMAR SHE HAS NEVER RECIEVED THE 10 MG ROXANOL; HOWEVER PT IS GOING HOME IN A FEW MINUTES PRE MEDICATION FOR THAT IS THE PLAN. PT HOWEVER HAS ALSO NEVER BEEN GIVEN BOTH MEDS TOGETHER. SPOKE TO PALLIATIVE CARE RN WENT AND WASTED ANOTHER 5MG ROXANOL. PLAN TO GIVE 5 OF ROXANOL FOR AIR HUNGER AND 1MG ATIVAN FOR ANXIETY. TRANSPORT ARRIVED AT THE TIME MEDS WERE BEING GIVEN AND THE PT NO LONGER WAS DISPLAYING SYMPTOMS OF ANXIETY, RESPIRATIONS WERE STILL FAST, MEDICATED WITH ROXANOL PRIOR TO DISCHARGE FOR AIR HUNGER. PT WAS TAKEN BY [employer] [facility] TO HER HOME WHERE SHE WILL BE ADMITTED TO HOSPICE LATER TODAY. FAMILY TO MEET HER AT HOME. HARD COPY SCRIPTS WERE PLACED IN THE PT BELONGINGS BAG WITH HER HOME MEDICATIONS AND SENT WITH THE TRANSPORT. ELECTRICAL ACCESSORIES I ASSEMBLER INFORMED WHEN THE PT WAS LEAVING.
== END 2019-10-07 10:08 | disposition hospice, home (50) | DRG 280 ==
LOC: ER 19:04 → MEDS 22:07 → PCU 22:07 → MEDS 10-03 18:21
PROVIDERS: Emergency Medicine; Internal Medicine; Nurse Practitioner Acute Care; ADMIT Internal Medicine
DX: I11.0 Hypertensive heart disease with heart failure (principal); J96.01 Acute respiratory failure with hypoxia; I21.A1 Myocardial infarction type 2; I50.23 Acute on chronic systolic (congestive) heart failure; I25.5 Ischemic cardiomyopathy; Z95.2 Presence of prosthetic heart valve; G20 Parkinson's disease; I25.10 Atherosclerotic heart disease of native coronary artery without angina pectoris; Z95.1 Presence of aortocoronary bypass graft; Z95.5 Presence of coronary angioplasty implant and graft; G47.33 Obstructive sleep apnea (adult) (pediatric); Z86.73 Personal history of transient ischemic attack (TIA), and cerebral infarction without residual deficits; Z51.5 Encounter for palliative care; E78.5 Hyperlipidemia, unspecified; F02.80 Dementia in other diseases classified elsewhere, unspecified severity, without behavioral disturbance, psychotic disturbance, mood disturbance, and anxiety; Z91.19 Patient's noncompliance with other medical treatment and regimen; R54 Age-related physical debility; Z66 Do not resuscitate
CPT/HCPCS: 36415; 71045; 80048; 80053; 81001; 83735; 83880; 84145; 84484; 85025; 87086; 93005; 93010; 94762; 96365; 96366; 96367; 96375; 97110; 97116; 97161; 97530; 99285-25; A9270-GY; J0456; J0696; J1630; J1650; J1940; J7050